=== PATIENT | female | born 1990 | race Caucasian/White ===

== ENCOUNTER → 2023-11-06 14:49 | Outpatient (REF) | payer BC, SELFPAY | LOC: HWRAD 14:49 | PROVIDERS: ATTENDING PHYSICIAN Obstetrics & Gynecology; FAMILY PHYSICIAN Family Medicine | DX: T83.32XA Displacement of intrauterine contraceptive device, initial encounter (principal) | CPT/HCPCS: 76830; 76856 ==

== ENCOUNTER → 2023-11-09 13:53 | Outpatient (REF) | payer BC, SELFPAY | LOC: HWRAD 13:53 | PROVIDERS: ATTENDING PHYSICIAN Obstetrics & Gynecology | DX: T83.32XA Displacement of intrauterine contraceptive device, initial encounter (principal) | CPT/HCPCS: 74018 ==

== ENCOUNTER 2024-01-24 21:15 | Emergency (ER) | payer BC, SELFPAY ==
[2024-01-24 21:22] VITALS: BP 146/98
[2024-01-24 22:02] LABS: % Basophils 0.2 % (0-2); % Eosinophils 0.7 % (0-6); % Immature Granulocytes 0.5 % (0-0.5); % Lymphocytes 11.5 % (20.5-51.1); % Monocytes 6.1 % (1.7-9.3); Absolute Eosinophils 0.1 10^3/uL (0-0.7); Absolute Immature Granulocytes 0.1 10^3/uL (0-0.05); Absolute Lymphocytes 1.5 10^3/uL (1.2-3.4); Absolute Monocytes 0.8 10^3/uL (0.1-0.6); Absolute Neutrophils 10.6 10^3/uL (1.4-6.5); Hematocrit 40.7 % (37.0-47.0); Hemoglobin 14.5 g/dL (12.0-16.0); Mean Corp Hgb Conc. 35.6 g/dL (33.0-37.0); Mean Corpuscular Hgb 30.7 pg (27.0-31.0); Mean Corpuscular Volume 86.2 fL (81.0-99.0); Mean Platelet Volume 9.7 fL (7.4-10.4); Nucleated Red Blood Cells % 0 %; Platelet Count 333 10^3/uL (130-400); Red Blood Cell Count 4.72 10^6/uL (4.20-5.40); Red Cell Dist. Width 11.8 % (11.5-14.5)
[2024-01-24 22:20] LABS: HCG, Serum Qualitative Screen Negative
--- NOTE | 2024-01-24 22:21 | ED.GENMED ---
History of Present Illness
General
Chief Complaint: Abdominal Symptoms
Source: patient
Exam Limitations: none
Time Seen by Provider: 01/24/24 22:08
Travel History
Have you had any contact with someone who has COVID-19?: No
Do you have any symptoms of coronavirus? Fever > 100 degrees, chills, cough, shortness of breath, sore throat, loss of taste or smell, muscle aches, or headache?: No
History of Present Illness
History of Present Illness:
See MDM
Past History
Past History
ED Past Medical History: None
ED Past Surgical History: None
Social History
Tobacco: Non-smoker
Alcohol: None
Phy Exam
Physical Exam
Physical Exam:
See MDM
Course
Orders/Labs/Results
Orders:
Orders
01/24/24 21:51
CT Abd/pelvis W Iv Cont Urgent
Reason For Exam: abdominal pain
01/24/24 21:52
Test Result ONCE
01/24/24 21:58
Beta Hcg Serum Qualitative Screen [HCG, Serum Qualitative Screen] Urgent
Complete Blood Count/With Diff Urgent
Comprehensive Metabolic Panel Urgent
Lipase Urgent
01/24/24 22:17
Ketorolac [Toradol] 30 mg IV NOW STA
Ondansetron Injectable [Zofran] 4 mg IV NOW STA
01/24/24 22:21
0.9% Sodium Chloride 1000 ml [Nss] 1,000 ml IV BOLUS
01/24/24 23:18
Urinalysis Reflex To Culture Urgent
Date Specimen was Collected: 01/24/24
Time Specimen was Collected: 22:23
Abnormal Lab Results
01/24/24
21:58
WBC 13.0 H 10^3/uL
(4.8-10.8)
Abs Immat Gran (auto) 0.1 H 10^3/uL
(0-0.05)
Absolute Neuts (auto) 10.6 H 10^3/uL
(1.4-6.5)
Absolute Monos (auto) 0.8 H 10^3/uL
(0.1-0.6)
Neutrophils % 81.0 H %
(42.2-75.2)
Lymphocytes % 11.5 L %
(20.5-51.1)
Glucose 108 H mg/dl
(70-99)
Calcium 10.3 H mg/dl
(8.4-10.2)
01/24/24 21:58
01/24/24 21:58
Vital Signs
Initial and Last Documented VS:
Initial Vital Signs
Temp Pulse Resp Pulse Ox
98.8 F 99 19 97
01/24/24 21:21 01/24/24 21:21 01/24/24 21:21 01/24/24 21:21
Last Documented Vital Signs
Temp Pulse Resp BP Pulse Ox
98.8 F 99 19 146/98 97
01/24/24 21:21 01/24/24 21:21 01/24/24 21:21 01/24/24 21:22 01/24/24 21:21
MDM/Problems Addressed
Differential Diagnosis Includes:
HPI and MDM Narrative:
33-year-old female presenting for evaluation of right lower quadrant pain. At 4 AM, she woke up with vague lower abdominal pain. Symptoms have progressively gotten worse. It is associated with nausea. She has had reflux issues in the past but it
has never presented like this. She went to urgent care and had blood work performed showing mild leukocytosis. She was sent in to rule out acute appendicitis. Patient states the bumps in the road bother her while she was driving. She states the
vague abdominal pain is now localized to the right lower area. Given her history, will obtain CT to rule out acute appendicitis
Physical exam
General: Well appearing and non-toxic
HEENT: protecting airway
Neck: appears supple
CV: No evidence of cyanosis
Resp: No accessory muscle use
Abd: Non-distended. Point tenderness to right lower quadrant without rebound
Extremities: No deformities
Neuro: alert
Psych: Normal affect
Skin: Intact
Problems Addressed including Acute and Chronic Conditions affecting care:
1. Right lower quadrant abdominal pain
Acuity: acute
Prognosis: stable
Details: Given localized pain, will obtain CT rule out acute appendicitis
Updates
CT report references edema in small bowels. Appendix visualized and within normal limits. We discussed possible enteritis or possible inflammatory bowel disease. Discussed follow-up with PCP and GI
Differential Diagnosis (but not limited to): Acute appendicitis, ovarian cyst, pyelonephritis, kidney stone
Testing considered: Pelvic ultrasound
Drug therapy (if applicable): OTC meds, please see d/c instruction regarding Rx drugs
Amount and/or Complexity of Data Reviewed
Clinical info obtained from: Patient
External data reviewed: N/A
Labs I independently reviewed (but not limited to): Leukocytosis
Radiology: The CT scan was personally and independently reviewed. In addition, official CT report reviewed.
Pulse Ox: not hypoxic
EKG independently reviewed: N/A
Gis Manager: N/A
Critical Care: N/A
Risk of Complication:
Social Determinants of health: Good social support
Discussed with other providers: N/A
Escalation of Care includes Admit/Obs: After being observed in the Emergency Department, pt stable for discharge.
Occasional wrong word or 'sound a like' substitutions may have occurred due to the inherent limitations of voice recognition software. Read the chart carefully and recognize, using context, where substitutions have occurred.
*Critical Care Note
Total Time (30-74mins, 75-104mins- exclusive of procedures): Not Applicable
ED Attending Note
-
Portions of this chart may have been created with voice recognition software.� Occasional wrong word or��sound alike� substitutions may have occurred due to the inherent limitations of voice recognition software.
Discharge Plan
Departure
Patient Disposition: Home (Routine Discharge)
Date of Disposition: 01/25/24
Time of Disposition: 00:07
Patient with high blood pressure during this ER visit?: Yes
Discharge Problem:
Enteritis
Prescriptions:
New
ondansetron 4 mg Tablet,Disintegrating
4 mg PO BIDPRN PRN (Reason: nausea/vomiting) Qty: 10 0RF
No Action
PNV cmb#95-ferrous fumarate-FA [] 1 EACH tablet
1 ea PO DAILY
buspirone 5 mg Tablet
5 mg PO BID
acetaminophen 325 mg Tablet
650 mg PO Q4HPRN PRN (Reason: mild pain) Qty: 0 0RF
ibuprofen 600 mg Tablet
600 mg PO Q6HPRN PRN (Reason: moderate pain/cramps) Qty: 0 0RF
Referrals:
Suzy Ocasio MD [Active] -
Chi Patrick DO [Family Provider] -
Activity Restrictions/Additional Instructions:
Please return for any worsening symptoms.
You may return at any time if you have further concerns.
Please follow up with your doctor at the first available appointment, preferably this week.
Please make an appointment to see the copying machine mechanic.
Thank you for choosing [facility].
Interventions
Interventions:
*Risk Screen - Suicide Last Done: 01/24/24 22:40
*General Assessment Last Done: 01/24/24 22:40
*Neglect/Abuse Screening Last Done: 01/24/24 22:40
ED- Fall Risk Assessment Last Done: 01/24/24 22:40
QA-Vwkdjz-Zhsnorzglp Assessment Last Done: 01/24/24 22:40
Discharge Date and Time
Print Language: SAMI
[2024-01-24 22:24] LABS: ALT (SGPT) 12 U/L (0-35); AST (SGOT) 20 U/L (14-36); Albumin 4.1 g/dl (3.5-5.0); Alkaline Phosphatase 87 U/L (38-126); Blood Urea Nitrogen 8 mg/dl (7-17); Calcium 10.3 mg/dl (8.4-10.2); Carbon Dioxide 24 mmol/L (22-30); Chloride 103 mmol/L (98-107); Glucose 108 mg/dl (70-99); Lipase 107 U/L (23-300); Potassium 4.1 mmol/L (3.5-5.1); Sodium 136 mmol/L (135-145); Total Bilirubin 0.5 mg/dl (0.2-1.3); Total Protein 6.8 g/dl (6.3-8.2); eGFR > 60.00
[2024-01-24] MEDS: NSS 1000 IV (22:36)
[2024-01-24] MEDS: ZOFRAN 4 MG IV (22:36)
[2024-01-24] MEDS: TORADOL 30 MG IV (22:36)
[2024-01-24 22:38] VITALS: BMI 30.4
[2024-01-24 23:25] LABS: Urine Albumin Negative (Neg - Trace); Urine Bilirubin Negative (Negative); Urine Character Clear (Clear); Urine Color Yellow; Urine Glucose Negative (Negative); Urine Ketone Negative (Negative); Urine Leukocyte Negative (Negative); Urine Nitrite Negative (Negative); Urine Occult Blood Negative (Negative); Urine Urobilinogen Negative (Neg - 1+); Urine pH 6.5 (5.0-9.0)
== END 2024-01-25 00:14 | disposition home or self-care (01) ==
LOC: EMR 21:15
PROVIDERS: EMERGENCY PHYSICIAN Student in an Organized Health Care Education/Training Program; FAMILY PHYSICIAN Family Medicine
DX: K52.9 Noninfective gastroenteritis and colitis, unspecified (principal); R03.0 Elevated blood-pressure reading, without diagnosis of hypertension
CPT/HCPCS: 99285; 96374; 96375; 96361; 74177; 80053; 81003; 83690; 84703; 85025; Q9967

== ENCOUNTER 2024-07-19 21:12 | Emergency (ER) | payer BC, SELFPAY ==
[2024-07-19 21:14] VITALS: BP 139/82
[2024-07-19] MEDS: ZOFRAN ODT (ORALLY DISINTEGRATING) 4 MG PO (21:26)
[2024-07-19 21:32] LABS: % Basophils 0.4 % (0-2); % Eosinophils 1.4 % (0-6); % Immature Granulocytes 0.2 % (0-0.5); % Lymphocytes 33.1 % (20.5-51.1); % Monocytes 8.3 % (1.7-9.3); % Neutrophils 56.6 % (42.2-75.2); Absolute Eosinophils 0.1 10^3/uL (0-0.7); Absolute Lymphocytes 2.8 10^3/uL (1.2-3.4); Absolute Monocytes 0.7 10^3/uL (0.1-0.6); Absolute Neutrophils 4.8 10^3/uL (1.4-6.5); Hematocrit 39.5 % (37.0-47.0); Hemoglobin 13.6 g/dL (12.0-16.0); Mean Corp Hgb Conc. 34.4 g/dL (33.0-37.0); Mean Corpuscular Hgb 30.6 pg (27.0-31.0); Nucleated Red Blood Cells % 0 %; Platelet Count 283 10^3/uL (130-400); Red Blood Cell Count 4.44 10^6/uL (4.20-5.40); Red Cell Dist. Width 12.1 % (11.5-14.5); Urine Albumin Trace (Neg - Trace); Urine Bilirubin Negative (Negative); Urine Character Slightly Cloudy (Clear); Urine Color Yellow; Urine Glucose Negative (Negative); Urine Ketone Negative (Negative); Urine Leukocyte Trace (Negative); Urine Nitrite Negative (Negative); Urine Occult Blood 4+ (Negative); Urine Specific Gravity 1.025 (<1.030); Urine Urobilinogen Negative (Neg - 1+); White Blood Cell Count 8.4 10^3/uL (4.8-10.8)
[2024-07-19 21:38] LABS: Urine Mucus Moderate; Urine Squamous Cell >30 /LPF (Few)
[2024-07-19 21:39] LABS: Urine Bacteria Few (Negative); Urine Red Blood Cell 16-20 /HPF (0-2); Urine Waxy Cast 0-2 /LPF
[2024-07-19 21:44] LABS: HCG, Serum Qualitative Screen Negative
[2024-07-19 21:49] LABS: ALT (SGPT) 15 U/L (0-35); AST (SGOT) 20 U/L (14-36); Albumin 4.2 g/dl (3.5-5.0); Alkaline Phosphatase 79 U/L (38-126); Blood Urea Nitrogen 10 mg/dl (7-17); Calcium 9.6 mg/dl (8.4-10.2); Carbon Dioxide 26 mmol/L (22-30); Chloride 103 mmol/L (98-107); Glucose 115 mg/dl (70-99); Potassium 4.2 mmol/L (3.5-5.1); Sodium 141 mmol/L (135-145); Total Bilirubin 0.2 mg/dl (0.2-1.3); Total Protein 6.9 g/dl (6.3-8.2); eGFR > 60.00
[2024-07-19 21:50] LABS: Lipase 138 U/L (23-300)
--- NOTE | 2024-07-19 23:25 | ED.GENMED ---
History of Present Illness
<KELLY Oleary - Last Filed: 07/20/24 05:40>
General
Chief Complaint: Flank Pain
Source: patient
Exam Limitations: none
Time Seen by Provider: 07/19/24 23:16
Nursing documentation reviewed up to this point in time: agreed with
History of Present Illness
History of Present Illness:
Pt is a 33 y/o F w/ PMH of anxiety and laparoscopic IUD removal without sequelae who presents to the ED today with nausea, flank pain and hematuria x 4 days. She states she became nausea on Thursday and thought she had food poisoning. She admits to
one episode of non-bloody vomiting on Thursday. The nausea has been persistent since then but she has been able to eat/drink normally, but has decreased appetite. She admits to L sided flank pain that is moderate and comes in waves. She notes it
started in her LLQ and then radiated around her side to her left lower back. She has tried Tylenol with her last dose around midday today, which has seemed to help mostly. She also admits to gross hematuria which she noticed when wiping with
associated dysuria that she describes as 'burning.' Pt believes she may have had a fever on Thursday night, but is unsure. She denies BERNARD, diarrhea, constipation, changes in vision, sore throat, chest pain, cough.
Past History
<KELLY Oleary - Last Filed: 07/20/24 05:40>
Past History
ED Past Medical History: None
ED Past Surgical History: None
Social History
Tobacco: Non-smoker
Alcohol: None
Review of Systems
<KELLY Oleary - Last Filed: 07/20/24 05:40>
Review of Systems
Allergies reviewed?: Yes
Constitutional: Reports no symptoms
EENT: Reports no symptoms
Respiratory: Reports no symptoms
Cardiac: Reports no symptoms
ABD/GI: Reports abdominal pain (LLQ with radiation to the L flank), nausea and vomiting (1 episode on Thursday); Denies diarrhea, constipated or bloody stools
: Reports dysuria, flank pain and bleeding (gross hematuria when wiping); Denies frequency, incontinence, urgency or discharge
Phy Exam
<Love Maddox [facility] - Last Filed: 07/20/24 05:40>
General Physical Exam
General Presentation: well appearing
General age: appears stated age
General Skin: warm and dry
General Habitus: normal
General Mental: alert
General Hydration: appears well hydrated
Cardiovascular Exam
Cardiovascular Exam: regular rate/rhythm
Pulmonary Exam
Pulmonary Exam: lungs clear and no respiratory distress
Gastrointestinal Exam
Gastrointestinal Exam: normal bowel sounds, soft and non distended
Palpation: left upper quadrant: No tenderness, left lower quadrant: Minimal tenderness, right upper quadrant: No tenderness and right lower quadrant: No tenderness
Course
<Love Maddox [facility] - Last Filed: 07/20/24 05:40>
Orders/Labs/Results
Orders:
Orders
07/19/24 21:20
Test Result ONCE
07/19/24 21:21
CT Abd/pelvis Wo Iv Cont Urgent
Comment:
Reason For Exam: L flank pain
07/19/24 21:24
Ondansetron Orally Disint [Zofran Odt (Orally Disintegrating)] 4 mg .ROUTE .STK-MED ONE
07/19/24 21:25
Complete Blood Count/With Diff Urgent
Comprehensive Metabolic Panel Urgent
HCG, Serum Qualitative Screen Urgent
Lipase Urgent
Urinalysis Reflex To Culture Urgent
Date Specimen was Collected: 07/19/24
Time Specimen was Collected: 21:21
Urine Microscopic Reflex Cult Urgent
Ondansetron Orally Disint [Zofran Odt (Orally Disintegrating)] 4 mg PO NOW STA
07/20/24 00:45
Fosfomycin [Monurol] 3 gm PO ONCE ONE
Abnormal Lab Results
07/19/24
21:25
Absolute Monos (auto) 0.7 H 10^3/uL
(0.1-0.6)
Glucose 115 H mg/dl
(70-99)
Ur Occult Blood Reflex 4+ A
(Negative)
Leukocyte Esterase Rfl Trace A
(Negative)
Urine RBC 16-20 A /HPF
(0-2)
Urine Bacteria (Reflex) Few A
(Negative)
07/19/24 21:25
07/19/24 21:25
Vital Signs
Initial and Last Documented VS:
Initial Vital Signs
Temp Pulse Resp BP Pulse Ox
97.5 F 71 16 139/82 98
07/19/24 21:14 07/19/24 21:14 07/19/24 21:14 07/19/24 21:14 07/19/24 21:14
Last Documented Vital Signs
Temp Pulse Resp BP Pulse Ox
97.5 F 70 18 130/80 99
07/19/24 21:14 07/20/24 01:20 07/20/24 01:20 07/20/24 01:20 07/20/24 01:20
Felixlt;Tr Jacques, DO - Last Filed: 07/20/24 00:55>
Orders/Labs/Results
Orders:
Orders
07/19/24 21:20
Test Result ONCE
07/19/24 21:21
CT Abd/pelvis Wo Iv Cont Urgent
Comment:
Reason For Exam: L flank pain
07/19/24 21:24
Ondansetron Orally Disint [Zofran Odt (Orally Disintegrating)] 4 mg .ROUTE .STK-MED ONE
07/19/24 21:25
Complete Blood Count/With Diff Urgent
Comprehensive Metabolic Panel Urgent
HCG, Serum Qualitative Screen Urgent
Lipase Urgent
Urinalysis Reflex To Culture Urgent
Date Specimen was Collected: 07/19/24
Time Specimen was Collected: 21:21
Urine Microscopic Reflex Cult Urgent
Ondansetron Orally Disint [Zofran Odt (Orally Disintegrating)] 4 mg PO NOW STA
07/20/24 00:45
Fosfomycin [Monurol] 3 gm PO ONCE ONE
Abnormal Lab Results
07/19/24
21:25
Absolute Monos (auto) 0.7 H 10^3/uL
(0.1-0.6)
Glucose 115 H mg/dl
(70-99)
Ur Occult Blood Reflex 4+ A
(Negative)
Leukocyte Esterase Rfl Trace A
(Negative)
Urine RBC 16-20 A /HPF
(0-2)
Urine Bacteria (Reflex) Few A
(Negative)
07/19/24 21:25
07/19/24 21:25
Vital Signs
Initial and Last Documented VS:
Initial Vital Signs
Temp Pulse Resp BP Pulse Ox
97.5 F 71 16 139/82 98
07/19/24 21:14 07/19/24 21:14 07/19/24 21:14 07/19/24 21:14 07/19/24 21:14
Last Documented Vital Signs
Temp Pulse Resp BP Pulse Ox
97.5 F 70 18 130/80 99
07/19/24 21:14 07/20/24 01:20 07/20/24 01:20 07/20/24 01:20 07/20/24 01:20
<KELLY Oleary - Last Filed: 07/20/24 05:40>
MDM/Problems Addressed
Differential Diagnosis Includes:
kidney stones, pyelonephritis, acute cystitis, PID, ovarian torsion
<KELLY Oleary - Last Filed: 07/20/24 05:40>
*Critical Care Note
Total Time (30-74mins, 75-104mins- exclusive of procedures): Not Applicable
<Tr Jacques DO - Last Filed: 07/20/24 00:55>
Update Note
Update Note:
Comparison January 24, 2024
CT abdomen and pelvis without contrast
IMPRESSION:
No acute intra-abdominal pathology. No bowel obstruction or inflammation. Appendix is normal. No hydronephrosis or nephrolithiasis. No free air or free fluid.
ED Attending Note
<KELLY Oleary - Last Filed: 07/20/24 05:40>
-
Portions of this chart may have been created with voice recognition software.� Occasional wrong word or��sound alike� substitutions may have occurred due to the inherent limitations of voice recognition software.
<Tr Jacques DO - Last Filed: 07/20/24 00:55>
ED Attending Note
Patient seen and examined by attending physician: Yes
I performed the substantive portion of visit, reviewed & personally made and approve the management plan that is documented in note by myself or ISRA.: Yes
ED Attending Note:
This a pleasant 33-year-old female presents to the emergency department with flank pain nausea and vomiting. She also had some hematuria. Last menstrual period was July 08. Denies fever, chills, chest pain, shortness of breath. At time of my
H&P, patient had no complaints. Patient was seen in conjunction with the PA student. I have reviewed and agree with the history and treatment plan presented. On my independent physical exam, patient is awake, alert, and oriented x3, no acute
distress. Heart is regular rate and rhythm. Lungs clear to auscultation bilaterally no wheezes rales or rhonchi. Abdomen soft nontender to deep or superficial palpation. Good bowel sounds x 4 quadrants. No CVA tenderness. Moves all 4
extremities. Skin is warm and dry.
Plan: CT scan negative for kidney stones. She does have hematuria and trace findings for a UTI. Will give a dose of Monurol. Await cultures. Document return to ER instructions.
Discharge Plan
Departure
Patient Disposition: Home (Routine Discharge)
Date of Disposition: 07/20/24
Time of Disposition: 00:48
Patient with high blood pressure during this ER visit?: Yes
Discharge Problem:
Acute flank pain, UTI (urinary tract infection)
Instructions: Flank Pain (DC), How to Strain Your Urine, Urinary Tract Infection, Adult ED, BLOOD PRESSURE
Prescriptions:
No Action
PNV cmb#95-ferrous fumarate-FA [] 1 EACH tablet
1 ea PO DAILY
buspirone 5 mg Tablet
5 mg PO BID
acetaminophen 325 mg Tablet
650 mg PO Q4HPRN PRN (Reason: mild pain) Qty: 0 0RF
ibuprofen 600 mg Tablet
600 mg PO Q6HPRN PRN (Reason: moderate pain/cramps) Qty: 0 0RF
ondansetron 4 mg Tablet,Disintegrating
4 mg PO BIDPRN PRN (Reason: nausea/vomiting) Qty: 10 0RF
Referrals:
Susan Rios CRNP [Family Provider] -
Activity Restrictions/Additional Instructions:
You received a one-time dose of antibiotic for UTI.
It was a pleasure meeting you and taking part in your care. We hope for your continued healing and wellness.
Please read discharge instructions in their entirety. However, they are for general education and may not describe your exact diagnosis at discharge. Information on your ER visit and medical conditions were discussed with you along with appropriate
follow up information...
If indicated, please take your medications as instructed and indicated on discharge paperwork.
Please schedule a follow up appointment as directed. Call to schedule an appointment
Please return to the emergency department with ANY change in, persisting, or worsening of symptoms. If any of your symptoms do not improve, or persist, or become more severe within 6-12 hours, please return to the emergency department for further
care.
Please return to the emergency department if you develop a headache, neck pain/stiffness, fever greater than 100.4F, chest pain, shortness of breath, persistent nausea, vomiting, slurred speech, difficulty walking, numbness/tingling, weakness, signs
of infection or any other symptoms that are worrisome to you.
If you have any questions or concerns please do not hesitate to call the Hospital at or E-mail me directly at [email or web address]
Interventions
Interventions:
*Risk Screen - Suicide Last Done: 07/20/24 01:20
*General Assessment Last Done: 07/19/24 23:07
*Neglect/Abuse Screening Last Done: 07/20/24 01:20
*ED COVID-19 Vaccine History Last Done: 07/19/24 23:07
*Nursing Disposition Last Done: 07/20/24 01:20
JB-Lzqzxu-Axwxbigula Assessment Last Done: 07/19/24 23:07
ED-Female Genitourinary Assessment Last Done: 07/19/24 23:07
Discharge Date and Time
Discharge Date/Time: 07/20/24 01:21
Print Language: POLISH
[2024-07-20] MEDS: MONUROL 3 GM PO (01:15)
[2024-07-20 01:20] VITALS: BP 130/80
== END 2024-07-20 01:21 | disposition home or self-care (01) ==
LOC: EMR 21:12
PROVIDERS: Emergency Medicine; EMERGENCY PHYSICIAN Student in an Organized Health Care Education/Training Program; FAMILY PHYSICIAN Nurse Practitioner Primary Care
DX: R10.9 Unspecified abdominal pain (principal); N39.0 Urinary tract infection, site not specified; R31.9 Hematuria, unspecified; F41.9 Anxiety disorder, unspecified
CPT/HCPCS: 99284; 74176; 80053; 81003; 81015; 83690; 84703; 85025